=== PATIENT | male | born 1935 | race Native Hawaiian/Other Pacific Islander ===

== ENCOUNTER 2020-05-19 20:00 | Emergency (ER) | payer OTHER ==
[~2020-05-19] VITALS: Ht 170.2 cm; Wt 82.6 kg
[2020-05-19 20:00] VITALS: BP 151/67; TEMP 98.7
[2020-05-19 21:14] LABS: PLATELET COUNT 266 K/uL (142-355)
[2020-05-19 21:20] LABS: POTASSIUM 3.8 mmol/L (3.6-5.2)
[2020-05-20] MEDS ORDERED: ASPIRIN LOW81 MG PO (03:10)
[2020-05-20] MEDS ORDERED: ARNUITY EL100 MCG/AC INH (03:10)
[2020-05-20] MEDS ORDERED: LIPITOR40 MG PO (03:11)
[2020-05-20] MEDS ORDERED: ATEN25TA21 PO (03:11)
[2020-05-20] MEDS ORDERED: DONEPEZIL HYDRO10 M1 PO (03:12)
[2020-05-20] MEDS ORDERED: ESCITALOPRAM5 MG PO (03:13)
[2020-05-20] MEDS ORDERED: ELIQUIS5 MG PO (03:13)
[2020-05-20] MEDS ORDERED: PROSCAR5 MG PO (03:14)
[2020-05-20] MEDS ORDERED: GLIM2TAB PO (03:14)
[2020-05-20] MEDS ORDERED: LEVE5MLUD PO (03:19)
[2020-05-20] MEDS ORDERED: LAMICTAL150 MG PO (03:22)
[2020-05-20] MEDS ORDERED: METF500T PO (03:23)
[2020-05-20] MEDS ORDERED: LATA0.00 OPTH (03:23)
[2020-05-20] MEDS ORDERED: OMEPRAZOLE DR40 MG PO (03:25)
[2020-05-20] MEDS ORDERED: POTASSIUM CHLO20 ME2 PO (03:26)
[2020-05-20] MEDS ORDERED: RISP0.25 PO (03:27)
[2020-05-20] MEDS ORDERED: RISP0.5T2 PO (04:01)
[2020-05-20] MEDS ORDERED: TYLENOL325 MG PO (04:09)
[2020-05-20] MEDS ORDERED: NITROSTAT0.4 MG SL (09:58)
== END 2020-05-19 22:29 | disposition still patient (30) ==
LOC: ED 20:41
PROVIDERS: Emergency Medicine Emergency Medical Services
DX: R46.89 Other symptoms and signs involving appearance and behavior (principal); I10 Essential (primary) hypertension; Z11.59 Encounter for screening for other viral diseases; Z04.6 Encounter for general psychiatric examination, requested by authority
CPT/HCPCS: 36415; 80053; 81000; 85027; 87088; 87635; 93005; 99283; 99285; U0003